=== PATIENT | female | born 1965 | race Hispanic/Latino ===

== ENCOUNTER 2022-06-05 13:47 | Emergency (ER) | payer OTHER ==
[~2022-06-05] VITALS: Ht 152.4 cm; Wt 95.7 kg
[~2022-06-05 13:47] MED LIST: ACET-2079 PO; AMPH20TA3 PO; DESL5TAB55 PO; LISI10TA24 PO; LORA2TAB80 PO; OXYB10TA30 PO; PHEN1SUP43 RC; PRAV20TA4 PO; TOPI200T16 PO; TRAM50TA4 PO; VITAMIN B12 PO
[2022-06-05 13:48] VITALS: BP 140/80
[2022-06-05] MEDS ORDERED: KETOROLAC 60 MG VIAL (30MG/ML) IM STA (15:18)
[2022-06-05] MEDS ORDERED: NAPR375T6 PO (16:10)
== END 2022-06-05 16:20 | disposition home or self-care (01) ==
LOC: EDH 13:47
DX: S92.352A Displaced fracture of fifth metatarsal bone, left foot, initial encounter for closed fracture (principal); F41.9 Anxiety disorder, unspecified; F32.A Depression, unspecified; I10 Essential (primary) hypertension; Z88.8 Allergy status to other drugs, medicaments and biological substances; Z79.899 Other long term (current) drug therapy; Z98.890 Other specified postprocedural states; Z90.49 Acquired absence of other specified parts of digestive tract; X50.1XXA Overexertion from prolonged static or awkward postures, initial encounter; Y93.89 Activity, other specified; Y92.89 Other specified places as the place of occurrence of the external cause; Y99.8 Other external cause status
CPT/HCPCS: 99284; 73630; 73590; 96372; J1885

== ENCOUNTER 2023-10-02 06:13 | Day surgery (SDC) | payer OTHER ==
[~2023-10-02] VITALS: Ht 152.4 cm; Wt 101.6 kg
[2023-10-02] VITALS (15 sets, daily range): BP systolic 102–143; BP diastolic 51–75; PULSE 54–66; RESP 11–17
[~2023-10-02 06:13] MED LIST changes: -ACET-2079 PO; +AMLO-258 PO; -AMPH20TA3 PO; +BRIM5DRO21 OU; +CELE200 PO; -DESL5TAB55 PO; +DICY20TA3 PO; -LISI10TA24 PO; -LORA2TAB80 PO; +LOSA50TA64 PO; +MESA1.2T3 PO; +MIRA25TA PO; +OMEP40CA21 PO; -OXYB10TA30 PO; +PHEN15CA61 PO; -PHEN1SUP43 RC; +PLEC3TAB2 PO; +PREDNISONE OD; +QUET25TA36 PO; -TOPI200T16 PO; +VENL225T3 PO; -VITAMIN B12 PO
[2023-10-02] MEDS ORDERED: PROPOFOL 10 MG/ML 20ML VIAL IV ONE ×2 (08:18→08:32)
[2023-10-02] MEDS ORDERED: GLYCOPYRROLATE 0.2 MG/ML 5 ML VIAL ONE (08:18)
[2023-10-02] MEDS ORDERED: LIDOCAINE PF 100MG/5ML (2%) SYRINGE 5ML ONE (08:18)
[2023-10-02] MEDS ORDERED: MIDAZOLAM HCL 1 MG/ML 2ML VIAL ONE (08:18)
== END 2023-10-02 10:30 | disposition home or self-care (01) ==
LOC: ENDO 06:13 → DAH 06:13 → ENDO 10:30
PROVIDERS: ATTEND Surgery
DX: R10.13 Epigastric pain (principal); R10.11 Right upper quadrant pain; K22.89 Other specified disease of esophagus; K21.9 Gastro-esophageal reflux disease without esophagitis; I10 Essential (primary) hypertension; G47.30 Sleep apnea, unspecified; J45.909 Unspecified asthma, uncomplicated; F41.9 Anxiety disorder, unspecified; F32.A Depression, unspecified; E66.01 Morbid (severe) obesity due to excess calories; E78.49 Other hyperlipidemia; Z98.890 Other specified postprocedural states; Z98.891 History of uterine scar from previous surgery; Z90.710 Acquired absence of both cervix and uterus; Z98.84 Bariatric surgery status; Z72.89 Other problems related to lifestyle; Z68.41 Body mass index [BMI] 40.0-44.9, adult; Z90.49 Acquired absence of other specified parts of digestive tract
CPT/HCPCS: 43239; J2001; J2250; J2704; J3490; A4620; A4215 ×2; A4223; A7002; A4222; A4221; A4663; J7030; A4606